=== PATIENT | male | born 1985 | race Caucasian/White ===

== ENCOUNTER → 2018-08-19 | Outpatient (CLI) | payer MEDICAID ==
--- NOTE | 2018-08-21 17:50 | MR ---
EXAMINATION TYPE: MR foot LT wo con DATE OF EXAM: 08/19/2018 COMPARISON: None HISTORY: Pain in left foot / Sprain Standard multiplanar, multisequence MRI departmental protocol Multiplanar, multisequence images of the left foot were acquired. FINDINGS: There is subcutaneous edema on the dorsum of the forefoot. The metatarsals are intact. I se e no fracture. There is increased fluid signal at the first and second tarsometatarsal joints. There is increased fluid at the talonavicular joint and subtalar joint. The flexor tendons medially and lat erally of the foot appear intact. Plantar fascia appears normal. IMPRESSION: There is mild fluid at the first and second tarsometatarsal joints consistent with mild nonspecific s ynovitis. Subcutaneous edema. No fracture seen. No evidence of ligament or tendon tear. Increased fluid in the hindfoot subtalar joint consistent with synovitis.
== END | disposition home or self-care (01) ==
LOC: RADMRIMAIN 07:04
PROVIDERS: ATTEND Orthopaedic Surgery Sports Medicine
DX: S93.692A Other sprain of left foot, initial encounter (principal)